=== PATIENT | male | born 1990 | race Caucasian/White ===

== ENCOUNTER 2017-07-23 06:45 | Emergency (ER) | payer SELFPAY ==
[~2017-07-23] VITALS: Ht 182.9 cm; Wt 77.0 kg
[2017-07-23] MEDS ORDERED: SODIUM CHLORIDE 0.9% 1,000 ML IV ONE (07:07)
[2017-07-23 07:40] LABS: BASOPHILS % 0.6 % (0.0-2.0); EOSINOPHILS % 2.3 % (0.0-5.0); HEMATOCRIT. 41.4 % (42.0-52.0); HEMOGLOBIN. 13.9 g/dL (14.0-18.0); LYMPHOCYTES % 31.6 % (20.0-50.0); MEAN CORPUSCULAR HEMOGLOBIN 27.1 pg (28.0-32.0); MEAN CORPUSCULAR VOLUME 80.6 fL (80.0-94.0); MEAN PLATELET VOLUME 8.1 fl (7.4-10.4); MONOCYTES % 8.7 % (2.0-8.0); NEUTROPHILS % 56.8 % (40.0-76.0); PLATELET 213 x1000/uL (130-400); RED BLOOD CELL COUNT 5.13 mill/uL (4.7-6.1); RED CELL DISTRIBUTION WIDTH 14.3 % (11.6-14.6)
[2017-07-23] MEDS ORDERED: LORAZEPAM 2MG/ML CPJ IV ONE (07:45)
[2017-07-23] MEDS ORDERED: OLANZAPINE 10 MG/VIAL IM ONE ×2 (07:45)
[2017-07-23 07:53] LABS: CARBON DIOXIDE 33 mEq/L (21-32); CHLORIDE 104 mEq/L (98-107); ETHANOL BLOOD < 10 mg/dL
[2017-07-23 08:57] LABS: *AMPHETAMINES SCREEN URINE NEGATIVE (NEGATIVE); *BARBITURATES SCREEN URINE NEGATIVE (NEGATIVE); *BENZODIAZEPINES SCREEN URINE PRESUMTIVE POSITIVE (NEGATIVE); *COCAINE SCREEN URINE NEGATIVE (NEGATIVE); CANNABINOID URINE SCREEN PRESUMTIVE POSITIVE (NEGATIVE); METHADONE URINE SCREEN NEGATIVE (NEGATIVE); OPIATES URINE SCREEN NEGATIVE (NEGATIVE); PHENCYCLIDINE URINE SCREEN NEGATIVE (NEGATIVE)
[2017-07-23 23:04] VITALS: BP 127/68
== END 2017-07-24 01:00 | disposition home or self-care (01) ==
LOC: ER 06:45
DX: F12.929 Cannabis use, unspecified with intoxication, unspecified (principal); F91.8 Other conduct disorders; R03.0 Elevated blood-pressure reading, without diagnosis of hypertension; S40.811A Abrasion of right upper arm, initial encounter; S80.211A Abrasion, right knee, initial encounter; Z78.1 Physical restraint status; X58.XXXA Exposure to other specified factors, initial encounter; Y93.9 Activity, unspecified; Y92.488 Other paved roadways as the place of occurrence of the external cause
CPT/HCPCS: 36415; 80048; 80305; 80307; 80329; 85025; 96361; 96372; 96374; 99284; G0482; J2060; J3490; Z7610; J7030